=== PATIENT | female | born 1955 | race African-American/Black ===

== ENCOUNTER 2019-02-04 18:36 | Inpatient (IN) ==
[2019-02-04 20:38] LABS: BASO# 0.02 X1000 (0.0-0.2); BASO% 0.2 % (0.0-0.8); EOS# 0.12 X1000 (0.0-0.7); HEMATOCRIT 32.1 % (37.0-47.0); HEMOGLOBIN 10.4 g/dL (12.0-16.0); IMM GRAN# 0.03 X1000 (0.0-0.04); IMM GRAN% 0.3 % (0.0-0.5); LYMPH# 1.63 X1000 (1.2-3.4); LYMPH% 13.8 % (20.5-51.1); MCH 27.8 PG (27-31); MCHC 32.4 g/dL (33-37); MCV 85.8 FL (81-99); MONO% 6.8 % (1.7-9.3); MPV 9.7 FL (7.4-10.4); NEUT# 9.22 X1000 (1.4-6.5); NEUT% 77.9 % (42.2-75.2); PLT 325 X1000 (130-400); RBC 3.74 XMIL (4.2-5.4); RDW 13.7 % (11.5-14.5); WBC 11.82 X1000 (4.8-10.8)
[2019-02-04 20:39] LABS: BE 1.7 mmoll (-3.0-3.0); BLOOD TYPE ARTERIAL; HCO3-(ACT) 26.2 mmoll (20.0-26.0); METHB 0.8 % (0.0-1.5); O2(CT) 14.1 mL/dL (15.0-23.0); O2HB 93.4 % (95.0-99.0); PCO2(98.6) 49 mmHg (35-45); PO2(98.6) 69 mmHg (60-100); SAMPLE BLOOD; SAO2 96.2 % (95.0-100.0); THB 10.7 g/dL (11.5-17.4); pH(98.6) 7.36 (7.35-7.45)
[2019-02-04 20:42] LABS: ALLEN TEST YES; MODALITY CANNULA
--- NOTE | 2019-02-04 21:08 | Diag Imaging Result Doc PS360 ---
EXAM: CHEST-PORTABLE HISTORY: SOB TECHNIQUE: Chest single view COMPARISON: None. FINDINGS: The lungs are well expanded. The heart is not enlarged. Mild central vascular prominence. There are no infiltrates. IMPRESSION: Mild central vascular prominence Electronically signed by Memo Falcon 02/04/2019 9:06 PM
[2019-02-04] MEDS ORDERED: DUONEB (A & A) INH ONE ×2 (21:31→23:05)
[2019-02-04] MEDS ORDERED: ROCEPHIN 1 GM in NS 50 ML IV ONE (21:31)
[2019-02-04 21:38] LABS: URINE SOURCE CLEAN CATCH
[2019-02-04 21:45] LABS: BILIRUBIN URINE NEGATIVE (NEGATIVE); BLOOD URINE 1+ (NEGATIVE); CLARITY CLEAR (CLEAR); COLOR YELLOW; GLUCOSE URINE NEGATIVE (NEGATIVE); KETONE URINE TRACE mg/dL (NEGATIVE); PROTEIN URINE TRACE mg/dL (NEGATIVE); UROBILINOGEN URINE NORMAL
[2019-02-04 21:46] LABS: LEUKOCYTES URINE 1+ (NEGATIVE); NITRITE URINE NEGATIVE (NEGATIVE)
[2019-02-04 21:52] LABS: URINE BACTERIA NEGATIVE /HFP; URINE CAST NONE SEEN /LPF; URINE CRYSTAL NONE SEEN /HPF; URINE EPITHELIAL CELLS <10 /HPF (<10); URINE RBC <10 /HPF (<10); URINE WBC <10 /HPF (<10); URINE YEAST NONE SEEN /HPF
[2019-02-04 22:01] LABS: CREATININE 1.3 mg/dL (0.5-0.9); POTASSIUM 4.3 mmol/L (3.5-5.1)
[2019-02-04 22:02] LABS: CALCIUM 9.2 mg/dL (8.8-10.2)
[2019-02-04] MEDS ORDERED: PEPCID IV ONE (22:05)
[2019-02-04] MEDS ORDERED: SOLU-MEDROL IV ONE (22:05)
[2019-02-04] MEDS ORDERED: NS 500 ML IV ONE (22:05)
[2019-02-04] MEDS ORDERED: SODIUM CHLORIDE 0.9% INJ ONE (22:06)
--- NOTE | 2019-02-04 23:32 | EKG Report ---
Test Performed on : 02/04/2019 7:50:19 PM Test Reason : SOB Blood Pressure : / mmHG Vent. Rate : 104 BPM Atrial Rate : 104 BPM P-R Int : 126 ms QRS Dur : 086 ms QT Int : 332 ms P-R-T Axes : 048 025 053 degrees QTc Int : 436 ms Sinus tachycardia. Otherwise normal ECG When compared with ECG of 24-MAR-2018 20:55, Vent. rate has increased BY 43 BPM Unconfirmed Result
[2019-02-05] MEDS: ZOFRAN IV PRN ×3 (02:11→15:18)
[2019-02-05] MEDS: TORADOL IV PRN ×3 (02:11→22:22)
[2019-02-05] MEDS: DUONEB (A & A) INH SCH ×7 (03:31→23:30)
--- NOTE | 2019-02-05 05:41 | Diag Imaging Result Doc PS360 ---
EXAM: CT ANGIOGRM PULMONARY ARTERIES HISTORY: Dyspnea,elev D-DIM TECHNIQUE: CT chest with intravenous contrast. Pulmonary arterial protocol with MIP images. COMPARISON: 11/09/2017 FINDINGS: Suboptimal opacification of the pulmonary arteries. No central pulmonary emboli. No cardiomegaly. No thoracic aortic aneurysm or dissection. No pleural effusions. There calcified left hilar nodes with left lower lobe granuloma. Small hiatal hernia. There is a small amount of scarring in the right lung base. No consolidation. No bronchiectasis. IMPRESSION: 1.No pulmonary emboli 2.There is evidence of a prior granulomatous infection 3.Small hiatal hernia 4.A preliminary report was given at 11:21 PM on 02/04/2019 This exam was performed using automated exposure control, adjustment of mA or kV according to patient size, and/or use of iterative reconstruction technique. Electronically signed by Memo Falcon 02/05/2019 5:39 AM
[2019-02-05] MEDS ORDERED: BUSPAR PO SCH (10:00)
[2019-02-05] MEDS: ZOLOFT PO SCH (10:21)
[2019-02-05] MEDS: ASPIRIN PO SCH (10:21)
[2019-02-05] MEDS: ICAR-C PO SCH (10:21)
[2019-02-05] MEDS: KLOR-CON PO SCH (10:21)
[2019-02-05] MEDS: CALTRATE 600 + D PO SCH (10:22)
[2019-02-05] MEDS: COREG PO SCH ×2 (10:22→21:31)
[2019-02-05] MEDS: SOLU-MEDROL IV SCH ×2 (10:22→21:31)
[2019-02-05] MEDS: NORVASC PO SCH (10:30)
[2019-02-05] MEDS: NEURONTIN PO SCH ×2 (12:56→17:10)
[2019-02-05] MEDS ORDERED: MYLICON DROPS PO PRN (13:02)
[2019-02-05] MEDS: ADVAIR 100/50 DISKUS INH SCH ×2 (13:05→20:18)
[2019-02-05] MEDS: PERCOCET-10 PO PRN (15:18)
--- NOTE | 2019-02-05 17:40 | HISTORY AND PHYSICAL ---
CHIEF COMPLAINT: Shortness of breath that had began just prior to arrival. HISTORY OF PRESENTING ILLNESS: This is a 63-year-old female who presented to [facility] ER with complaints of shortness of breath that began yesterday prior to arrival. She was saturating 97% on 2 L via nasal cannula, states that she quit smoking cigarettes but continues to vape. Her white blood cell count was 11.82. D-dimer was 0.66. We did do a pulmonary arteriogram that showed no pulmonary emboli. Her creatinine was 1.3 with a BUN of 27 so she is being admitted for further evaluation and treatment. PAST MEDICAL HISTORY: Of CHF with an ejection fraction of 60% in 2018, coronary artery disease, hypertension, hyperlipidemia, obstructive sleep apnea, COPD, GERD, chronic pain on chronic narcotics, neuropathy and morbid obesity. PAST SURGICAL HISTORY: Heart stent placement x2, an appendectomy, bilateral tubal ligation. FAMILY HISTORY: Reviewed and noncontributory. SOCIAL HISTORY: She currently lives with family, quit smoking cigarettes 4 years ago but does use vaping, denies any alcohol or illicit drug use. ALLERGIES: She has no known drug allergies. HOME MEDICATIONS: Takes amlodipine 10 mg p.o. daily, aspirin 81 mg p.o. daily, atorvastatin 40 mg p.o. daily, BuSpar 12.5 mg p.o. daily, calcium with D3 1 p.o. daily, Coreg 12.5 mg p.o. b.i.d., Advair 100/50 Diskus 1 puff inhalation b.i.d., Lasix 40 mg p.o. daily will be held, gabapentin 600 mg p.o. t.i.d., iron with vitamin C 325 mg p.o. daily, oxycodone 10 mg p.o. q.8 hours p.r.n., potassium 10 mEq p.o. daily, Requip 2 mg p.o. at bedtime, Zoloft 50 mg p.o. daily. LABORATORY DATA: Showed a white blood cell count of 11.82, hemoglobin 10.4, hematocrit 32.1, platelets 325,000, D-dimer 0.66. ABG with a pH of 7.36, pCO2 of 49, PO2 69, bicarbonate 26.2 and this was on 2 L via nasal cannula. Sodium 136, potassium 4.3, chloride 97, CO2 24, BUN of 27, creatinine 1.3, glucose 129. Troponin was less than 0.010 with a proBNP of 81. Plasma lactate of 0.8. Urinalysis was negative. Chest x-ray showed mild central vascular prominence. Pulmonary arteriogram showed no pulmonary emboli, evidence of a prior granulomatous infection, a small hiatal hernia. REVIEW OF SYSTEMS: She was positive for shortness of breath, a nonproductive cough. Denied any fever, chills, blurred vision, dizziness, abdominal pain, constipation, diarrhea, nausea, vomiting, burning or hurting with urination. PHYSICAL EXAMINATION: On arrival she had a temperature of 98.5 degrees, pulse 105, respirations 20, blood pressure 137/67, saturating 97% on 2 L on arrival, she is now saturating 95% on 3 L. GENERAL: This is a 63-year-old female who is lying in the bed and answers questions appropriately. HEENT: Normocephalic, atraumatic. Normal ENT inspection. Oropharynx and nares are clear. Pupils are equal, round, reactive to light and accommodation. Extraocular movements are intact. NECK: Normal inspection, normal range of motion. LUNGS: With some scattered wheezing this morning on auscultation bilaterally. Equal lung expansion, chest wall movement noted. O2 via nasal cannula currently in use. HEART: Regular rate and rhythm. No murmurs, rubs, or gallops. ABDOMEN: Soft, nontender, nondistended. Bowel sounds are present x4 quadrants. MUSCULOSKELETAL: 5/5 strength x4 extremities. NEUROLOGICAL: The cranial nerves 2-12 appear grossly intact. ASSESSMENT: 1. An acute chronic obstructive pulmonary disease exacerbation. 2. Acute kidney injury. 3. Elevated D-dimer ruled out for pulmonary embolism . 4. Tobacco abuse. PLAN: She is being admitted to the medical unit. Placed on healthy heart diet. Blood cultures x2 are pending. She is on DuoNeb q.4 hours. She received Solu-Medrol 125 mg IV x1 in the emergency room, I am going to place her on 40 IV b.i.d., recheck CBC, BMP in the a.m. I am hesitant to start any fluids due to her congestive heart failure. I have held her diuretic at this time. We will recheck in the morning and see how she improves. Dictated by MICHAELA Osei for Prosper Cisneros MD cc: MICHAELA Osei MD
[2019-02-05] MEDS: ROCEPHIN 1 GM in NS 50 ML IV SCH (21:31)
[2019-02-05] MEDS: REQUIP PO SCH (21:31)
[2019-02-05] MEDS: LIPITOR PO SCH (21:31)
[2019-02-05] MEDS: CHLORASEPTIC SPRAY MT PRN (22:10)
[2019-02-06] MEDS: DUONEB (A & A) INH SCH ×5 (03:15→20:20)
[2019-02-06 07:46] LABS: HEMATOCRIT 32.2 % (37.0-47.0); HEMOGLOBIN 10.1 g/dL (12.0-16.0); IMM GRAN# 0.11 X1000 (0.0-0.04); IMM GRAN% 0.6 % (0.0-0.5); LYMPH# 0.85 X1000 (1.2-3.4); LYMPH% 4.5 % (20.5-51.1); MCH 27.4 PG (27-31); MCHC 31.4 g/dL (33-37); MCV 87.3 FL (81-99); MONO# 0.75 X1000 (0.11-0.59); MPV 9.6 FL (7.4-10.4); NEUT# 17.18 X1000 (1.4-6.5); NEUT% 90.9 % (42.2-75.2); PLT 356 X1000 (130-400); RBC 3.69 XMIL (4.2-5.4); RDW 14.4 % (11.5-14.5); WBC 18.89 X1000 (4.8-10.8)
[2019-02-06] MEDS: ADVAIR 100/50 DISKUS INH SCH ×2 (08:17→20:20)
[2019-02-06 08:31] LABS: CALCIUM 9.4 mg/dL (8.8-10.2)
[2019-02-06 08:34] LABS: LYMPHS 4 % (21-51); SEGS 96 % (42-75)
[2019-02-06 08:35] LABS: ANISOCYTOSIS OCCASIONAL; POIKILOCYTOSIS OCCASIONAL; POLYCHROM OCCASIONAL
[2019-02-06 08:36] LABS: OVALOCYTES OCCASIONAL
[2019-02-06] MEDS: ICAR-C PO SCH (08:49)
[2019-02-06] MEDS: SOLU-MEDROL IV SCH ×2 (08:49→10:06)
[2019-02-06] MEDS: CALTRATE 600 + D PO SCH (08:50)
[2019-02-06] MEDS: ZOLOFT PO SCH (08:50)
[2019-02-06] MEDS: NEURONTIN PO SCH ×3 (08:50→17:18)
[2019-02-06] MEDS: COREG PO SCH ×2 (08:50→22:05)
[2019-02-06] MEDS: NORVASC PO SCH (08:50)
[2019-02-06] MEDS: KLOR-CON PO SCH (08:50)
[2019-02-06] MEDS: BUSPAR PO SCH (08:50)
[2019-02-06] MEDS: ASPIRIN PO SCH (08:50)
[2019-02-06] MEDS: CHLORASEPTIC SPRAY MT PRN (08:55)
[2019-02-06] MEDS: MIRALAX PO SCH (12:17)
[2019-02-06] MEDS: LACTULOSE PO SCH ×3 (12:21→22:10)
--- NOTE | 2019-02-06 13:56 | PROGRESS NOTE ---
DATE: 02/06/2019 SUBJECTIVE: She was seen today after admission. She seems to be doing okay. Breathing is still a bit rough. She is also complaining of constipation. OBJECTIVE DATA: Her blood pressure is 131/55, heart rate of 94, respiratory rate of 22, temperature 98.1 degrees, 93% on 2 L. Cardiovascular: Regular rate and rhythm. Pulmonary: Bilateral breath sounds clear to auscultation. GI: Soft, nontender, nondistended. Bowel sounds were positive. Extremities: No clubbing or cyanosis. Lymphatic Examination: No peripheral edema. Neurological Examination: Nonfocal. Laboratory Data: White count is up to 18, hemoglobin and hematocrit 10 and 32, platelets 356,000. Basic was okay. Creatinine is down to 1. Chest x-ray just shows some vascular prominence. A CTA is really negative. PROBLEM LIST: 1. Acute chronic obstructive pulmonary disease exacerbation. She is still somewhat rhonchorous. I am going to bump up her steroids a little bit because she seems like she is still having wheezing. Continue breathing treatments and follow. 2. Acute kidney injury. Her renal function has improved. 3. Constipation. We will attempt to treat that accordingly. 4. Elevated D-dimer. She had a CTA that was negative. Presumably, she got the venous Dopplers as well. I guess we will get those at some point today. 5. Disposition. Pending her clinical status. It may be another day or two here. This will also serve as an attestation for yesterday's history and physical. cc: Prosper Cisneros MD
[2019-02-06] MEDS: PERCOCET-10 PO PRN ×2 (15:32→22:27)
[2019-02-06] MEDS ORDERED: SOLU-MEDROL IV SCH (22:00)
[2019-02-06] MEDS: LIPITOR PO SCH (22:05)
[2019-02-06] MEDS: REQUIP PO SCH (22:06)
[2019-02-06] MEDS: ROCEPHIN 1 GM in NS 50 ML IV SCH (22:06)
[2019-02-07] MEDS: DUONEB (A & A) INH SCH ×7 (01:15→22:35)
[2019-02-07] MEDS: LOVENOX SUBQ SCH (05:31)
[2019-02-07] MEDS: PERCOCET-10 PO PRN ×2 (05:31→18:06)
[2019-02-07 07:00] LABS: AGAP 9; BUN 28 mg/dL (8-22); CALCIUM 9.4 mg/dL (8.8-10.2); CHLORIDE 100 mmol/L (98-107); COSMO 282; CREATININE 0.8 mg/dL (0.5-0.9); ESTIMATED GFR > 60; GLUCOSE 186 mg/dL (70-104); POTASSIUM 5.3 mmol/L (3.5-5.1); SODIUM 136 mmol/L (136-145); TCO2 27 mmol/L (25-35)
[2019-02-07 07:05] LABS: HEMATOCRIT 32.5 % (37.0-47.0); IMM GRAN# 0.19 X1000 (0.0-0.04); IMM GRAN% 1.1 % (0.0-0.5); LYMPH# 0.82 X1000 (1.2-3.4); LYMPH% 4.7 % (20.5-51.1); MCH 27.4 PG (27-31); MCHC 30.8 g/dL (33-37); MONO# 0.15 X1000 (0.11-0.59); MONO% 0.9 % (1.7-9.3); MPV 9.6 FL (7.4-10.4); NEUT# 16.43 X1000 (1.4-6.5); NEUT% 93.3 % (42.2-75.2); PLT 356 X1000 (130-400); RBC 3.65 XMIL (4.2-5.4); RDW 14.8 % (11.5-14.5); WBC 17.59 X1000 (4.8-10.8)
[2019-02-07] MEDS: ADVAIR 100/50 DISKUS INH SCH ×2 (07:53→19:36)
[2019-02-07 08:21] LABS: BANDS 3 % (0-1); LYMPHS 9 % (21-51); SEGS 88 % (42-75)
[2019-02-07] MEDS: LACTULOSE PO SCH ×2 (10:49→21:31)
[2019-02-07] MEDS: MIRALAX PO SCH (10:49)
[2019-02-07] MEDS: SOLU-MEDROL IV SCH ×2 (10:49→21:31)
[2019-02-07] MEDS: NEURONTIN PO SCH ×3 (10:49→18:07)
[2019-02-07] MEDS: COREG PO SCH ×2 (10:49→21:32)
[2019-02-07] MEDS: ZOLOFT PO SCH (10:50)
[2019-02-07] MEDS: ASPIRIN PO SCH (10:50)
[2019-02-07] MEDS: ICAR-C PO SCH (10:50)
[2019-02-07] MEDS: NORVASC PO SCH (10:50)
[2019-02-07] MEDS: CALTRATE 600 + D PO SCH (10:51)
[2019-02-07] MEDS: BUSPAR PO SCH (11:03)
--- NOTE | 2019-02-07 11:08 | PROGRESS NOTE ---
DATE: 02/07/2019 SUBJECTIVE: Patient notes that she is still tired and fatigued. Still having some increased work of breathing. Does not feel strong enough to go home. PHYSICAL EXAMINATION: Vital Signs: Reviewed and stable. She is afebrile. Blood pressure is stable. Heart rate 80s, respiratory rate 20. General: Patient is in mild current respiratory distress which is improved. HEENT: Normocephalic. Neck: Supple. Cardiovascular: Regular rate. Chest: Decreased breath sounds bilaterally but equal. Abdomen: Soft, nondistended, nontender. Extremities: Moves all extremities. No edema. Neurologic: No focal changes. She is awake, alert, oriented x3. LABORATORY DATA: WBCs 17, potassium 5.3. ASSESSMENT: 1. Hyperkalemia. The patient currently is on potassium supplements. We will certainly stop this and recheck in the morning. 2. Leukocytosis. She is on Solu-Medrol which I expect is the cause of her leukocytosis. 3. Acute chronic obstructive pulmonary disease exacerbation. Continues to improve. Her steroids yesterday. We will decrease those back to 40 IV q.12h. We will continue Rocephin. Plan: Hopefully, she can discharge home over the next 1 or 2 days if her symptoms continue to improve. Discussed with patient the importance of getting out of bed today. cc: Trace Dumont MD MTDD
[2019-02-07] MEDS: REQUIP PO SCH (21:31)
[2019-02-07] MEDS: ROCEPHIN 1 GM in NS 50 ML IV SCH (21:31)
[2019-02-07] MEDS: LIPITOR PO SCH (21:32)
[2019-02-08] MEDS: DUONEB (A & A) INH SCH ×6 (03:52→22:49)
[2019-02-08] MEDS: LOVENOX SUBQ SCH (05:50)
[2019-02-08] MEDS: ADVAIR 100/50 DISKUS INH SCH ×2 (07:39→18:58)
[2019-02-08 07:52] LABS: HEMATOCRIT 34.7 % (37.0-47.0); HEMOGLOBIN 10.8 g/dL (12.0-16.0); MCH 27.6 PG (27-31); MCHC 31.1 g/dL (33-37); MCV 88.5 FL (81-99); MPV 9.6 FL (7.4-10.4); RBC 3.92 XMIL (4.2-5.4); RDW 14.9 % (11.5-14.5); WBC 19.2 X1000 (4.8-10.8)
[2019-02-08 08:08] LABS: AGAP 8; ALBUMIN 3.8 g/dL (3.5-5.0); ALKALINE PHOSPHATASE 93 U/L (32-104); BUN 27 mg/dL (8-22); CALCIUM 9.5 mg/dL (8.8-10.2); CHLORIDE 101 mmol/L (98-107); COSMO 285; CREATININE 0.7 mg/dL (0.5-0.9); ESTIMATED GFR > 60; GLUCOSE 147 mg/dL (70-104); GOT 12 U/L (10-30); GPT 16 U/L (10-36); POTASSIUM 5.4 mmol/L (3.5-5.1); SODIUM 139 mmol/L (136-145); TCO2 30 mmol/L (25-35); TOTAL PROTEIN 7.1 g/dL (6.3-8.3)
--- NOTE | 2019-02-08 08:20 | Extremity Venous Study ---
EXAM: Venous U/S Bilateral Legs HISTORY: swelling TECHNIQUE: Kong scale, color Doppler, and duplex evaluation was performed. COMPARISON: None. FINDINGS: The deep veins of the bilateral lower extremities demonstrate appropriate compressibility and augmentation. No intraluminal thrombus is visualized. There is no evidence for DVT. The superficial veins appear patent. Study is technically limited by body habitus. IMPRESSION: No evidence for deep venous thrombosis bilateral lower extremities. Electronically signed by Krystal Pathak 02/08/2019 8:18 AM
[2019-02-08] MEDS: LASIX IV SCH ×2 (09:12→21:01)
[2019-02-08] MEDS: LACTULOSE PO SCH ×2 (09:13→21:01)
[2019-02-08] MEDS: NORVASC PO SCH (09:13)
[2019-02-08] MEDS: ICAR-C PO SCH (09:13)
[2019-02-08] MEDS: SOLU-MEDROL IV SCH ×2 (09:13→21:01)
[2019-02-08] MEDS: CALTRATE 600 + D PO SCH (09:13)
[2019-02-08] MEDS: MIRALAX PO SCH (09:13)
[2019-02-08] MEDS: COREG PO SCH ×2 (09:13→21:01)
[2019-02-08] MEDS: ZOLOFT PO SCH (09:13)
[2019-02-08] MEDS: ASPIRIN PO SCH (09:13)
[2019-02-08] MEDS: NEURONTIN PO SCH ×3 (09:14→17:20)
[2019-02-08] MEDS: BUSPAR PO SCH (09:14)
--- NOTE | 2019-02-08 09:45 | Diag Imaging Result Doc PS360 ---
EXAM: CHEST-2 VIEWS HISTORY: hypoxia TECHNIQUE: PA and Lateral chest x-ray COMPARISON: 02/04/2019 FINDINGS: There is mild cardiomegaly. The aorta is tortuous. There is platelike atelectasis left lung. Pulmonary vasculature is not congested. Interstitial markings are mildly prominent similar to prior. No effusions. IMPRESSION: New platelike atelectasis left lung. Persistent mild interstitial prominence. Electronically signed by Krystal Pathak 02/08/2019 9:43 AM
[2019-02-08] MEDS: PERCOCET-10 PO PRN ×2 (10:10→21:13)
--- NOTE | 2019-02-08 19:44 | PROGRESS NOTE ---
DATE: 02/07/2019 SUBJECTIVE: Patient has no new complaints. States she is still short of breath. She has not really been out of bed. Still having swelling in her legs. PHYSICAL EXAMINATION: Vital Signs: Temperature 97.8, pulse 94, respiratory rate 18, BP 140/92. General: Patient is awake. She is in no current respiratory distress, although she does have some rhonchorous air sounds. HEENT: Normocephalic. Neck: Supple. Cardiovascular: Regular rate. Chest: Clear. Abdomen: Soft. Extremities: Moves all extremities. She does have 2+ edema in her bilateral lower extremities. Neurologic: No focal changes. ASSESSMENT: 1. Chronic obstructive pulmonary disease with mild exacerbation. Continues to improve. 2. Lower extremity edema. She did have an elevated D-dimer with a negative CTA and negative Dopplers. 3. Hyperkalemia. We have stopped her potassium. 4. Leukocytosis secondary to her Solu-Medrol. PLAN: We will continue patient in the hospital. We will continue to hold her potassium, decrease her breathing treatments per the family's request. The daughter was somewhat alarmed that the patient had gained weight, although this is more likely inadvertent user error as patient's weight had changed from 317 to 328, back to 307 in 3 subsequent days. This is highly unlikely. We will continue to follow. cc: Trace Dumont MD
[2019-02-08] MEDS: ROCEPHIN 1 GM in NS 50 ML IV SCH (21:00)
[2019-02-08] MEDS: LIPITOR PO SCH (21:01)
[2019-02-08] MEDS: REQUIP PO SCH (21:01)
[2019-02-09] MEDS: DUONEB (A & A) INH SCH ×6 (05:01→23:08)
[2019-02-09] MEDS: LOVENOX SUBQ SCH (05:08)
[2019-02-09 07:13] LABS: MCH 27.6 PG (27-31); MCHC 31.4 g/dL (33-37); MCV 87.9 FL (81-99); MPV 9.7 FL (7.4-10.4); RBC 3.98 XMIL (4.2-5.4); RDW 14.8 % (11.5-14.5); WBC 19.68 X1000 (4.8-10.8)
[2019-02-09 07:43] LABS: AGAP 11; ALBUMIN 3.4 g/dL (3.5-5.0); ALKALINE PHOSPHATASE 85 U/L (32-104); BUN 26 mg/dL (8-22); CALCIUM 8.9 mg/dL (8.8-10.2); CHLORIDE 99 mmol/L (98-107); COSMO 286; CREATININE 0.7 mg/dL (0.5-0.9); ESTIMATED GFR > 60; GLUCOSE 158 mg/dL (70-104); GOT 9 U/L (10-30); GPT 14 U/L (10-36); MAGNESIUM 1.8 mg/dL (1.5-2.7); POTASSIUM 4.8 mmol/L (3.5-5.1); SODIUM 139 mmol/L (136-145); TCO2 29 mmol/L (25-35); TOTAL PROTEIN 6.7 g/dL (6.3-8.3)
[2019-02-09] MEDS: ADVAIR 100/50 DISKUS INH SCH ×2 (08:12→19:59)
[2019-02-09] MEDS: MIRALAX PO SCH ×2 (08:59→09:09)
[2019-02-09] MEDS: COREG PO SCH ×2 (09:00→21:00)
[2019-02-09] MEDS ORDERED: SOLU-MEDROL IV SCH (09:00)
[2019-02-09] MEDS: ZOLOFT PO SCH (09:00)
[2019-02-09] MEDS: LASIX IV SCH (09:00)
[2019-02-09] MEDS: LACTULOSE PO SCH ×2 (09:00→21:01)
[2019-02-09] MEDS: PERCOCET-10 PO PRN ×2 (09:00→17:04)
[2019-02-09] MEDS: ASPIRIN PO SCH (09:01)
[2019-02-09] MEDS: CALTRATE 600 + D PO SCH (09:01)
[2019-02-09] MEDS: ICAR-C PO SCH (09:01)
[2019-02-09] MEDS: NORVASC PO SCH (09:01)
[2019-02-09] MEDS: BUSPAR PO SCH (09:01)
[2019-02-09] MEDS: NEURONTIN PO SCH ×3 (09:02→17:04)
--- NOTE | 2019-02-09 19:27 | PROGRESS NOTE ---
DATE: 02/09/2019 SUBJECTIVE: The patient notes that she is feeling better. She has chronic edema and fatigue. She is unable to acknowledge whether this has improved or worsened. OBJECTIVE: Vital Signs: Temperature 97.1, pulse 88, respiratory rate 18, BP 139/69. General: The patient is in no distress. She actually appears to be breathing easier today than she did yesterday. HEENT: Normocephalic. Neck: Supple. Cardiovascular: Regular rate. No murmurs. Chest: Nonlabored. No wheezing. Good air movement. Abdomen: Soft, nondistended, obese. Extremities: Moves all extremities. Two plus edema bilateral lower extremities. Neurologic: She has no focal neurologic changes. She is awake, alert, and oriented. ASSESSMENT: 1. Edema bilateral lower extremities. I expect she has some right-sided heart failure given her chronic obstructive pulmonary disease. 2. Chronic obstructive pulmonary disease exacerbation. 3. Leukocytosis, stable. 4. Hyperkalemia. Potassium is still elevated. Although we did hold her potassium we will recheck this in the morning. 5. Constipation. PLAN: Overall the patient has improved. We will continue to follow and keep her in the hospital today. Further orders as needed. We will recheck laboratories in the morning. cc: Trace Dumont MD
[2019-02-09] MEDS: REQUIP PO SCH (20:48)
[2019-02-09] MEDS: ROCEPHIN 1 GM in NS 50 ML IV SCH (20:48)
[2019-02-09] MEDS: LIPITOR PO SCH (20:48)
[2019-02-10] MEDS: DUONEB (A & A) INH SCH (03:02)
[2019-02-10] MEDS: LOVENOX SUBQ SCH (05:00)
[2019-02-10] MEDS: PERCOCET-10 PO PRN ×2 (05:14→16:10)
[2019-02-10] MEDS: ATROVENT NEB INH SCH ×5 (07:33→22:55)
[2019-02-10] MEDS: XOPENEX NEB INH SCH ×5 (07:34→22:55)
[2019-02-10] MEDS: ADVAIR 100/50 DISKUS INH SCH ×2 (07:34→19:20)
[2019-02-10] MEDS: NEXIUM PO SCH (10:03)
[2019-02-10] MEDS: LACTULOSE PO SCH ×2 (10:03→20:54)
[2019-02-10] MEDS: BUSPAR PO SCH (10:04)
[2019-02-10] MEDS: NEURONTIN PO SCH ×3 (10:04→16:09)
[2019-02-10] MEDS: ICAR-C PO SCH (10:05)
[2019-02-10] MEDS: PREDNISONE PO SCH ×2 (10:05→20:55)
[2019-02-10] MEDS: LASIX PO SCH ×2 (10:06→20:55)
[2019-02-10] MEDS: ANUSOL-HC SUPP PR SCH ×3 (10:06→20:55)
[2019-02-10] MEDS: ASPIRIN PO SCH (10:06)
[2019-02-10] MEDS: CALTRATE 600 + D PO SCH (10:06)
[2019-02-10] MEDS: MIRALAX PO SCH (10:07)
[2019-02-10] MEDS: NORVASC PO SCH (10:07)
[2019-02-10] MEDS: COREG PO SCH ×2 (10:07→20:55)
[2019-02-10] MEDS: ZOLOFT PO SCH (10:07)
[2019-02-10] MEDS: MYCELEX TROCHE PO SCH ×5 (10:19→20:55)
--- NOTE | 2019-02-10 13:58 | PROGRESS NOTE ---
DATE: 02/09/2019 SUBJECTIVE: Patient notes that she is feeling a little bit better, but still has not really been out of bed. Very tired and fatigued with any type of activity. Denies any chest pain or palpitations. Denies any change in her shortness of breath. No production to her cough. OBJECTIVE: Temperature 98.5, pulse 83, respiratory 18, and BP 132/70.General: Patient is awake. She is in no current respiratory distress. She is very pleasant to talk with. HEENT: Normocephalic. Neck: Supple. Cardiovascular: Regular rate. No murmurs. Lungs: Chest decreased but equal breath sounds. No wheezing. No crackles. Abdomen: Soft and nondistended. Extremities: Moves all extremities. ASSESSMENT: 1. Leukocytosis. 2. Hyperkalemia. 3. COPD with exacerbation. 4. Pedal edema. 5. Elevated D-dimer. PLAN: We will decrease her Solu-Medrol again today. We will change her over to prednisone. We will also change her Lasix to p.o. twice daily. She has had a good total urine output so far at 2235. If this continues, hopefully she can discharge home over the next 1 or 2 days. cc: Trace Dumont MD
[2019-02-10] MEDS: REQUIP PO SCH (20:54)
[2019-02-10] MEDS: ROCEPHIN 1 GM in NS 50 ML IV SCH (20:55)
[2019-02-10] MEDS: LIPITOR PO SCH (20:55)
[2019-02-11] MEDS: PERCOCET-10 PO PRN ×2 (00:23→10:03)
[2019-02-11] MEDS: LOVENOX SUBQ SCH (06:12)
[2019-02-11] MEDS: NEXIUM PO SCH (06:12)
--- NOTE | 2019-02-11 08:18 | Diag Imaging Result Doc PS360 ---
EXAM: CHEST-2 VIEWS HISTORY: hypoxia TECHNIQUE: Chest two views COMPARISON: 02/08/2019 FINDINGS: The lungs are well expanded except for atelectasis in the mid left lung. The heart is borderline mildly prominent. The vessels are not distended. There are no infiltrates. No pleural effusions. IMPRESSION: Stable chest Electronically signed by Memo Falcon 02/11/2019 8:16 AM
[2019-02-11] MEDS: XOPENEX NEB INH SCH ×5 (08:52→23:45)
[2019-02-11] MEDS: ATROVENT NEB INH SCH ×5 (08:52→23:45)
[2019-02-11] MEDS: ADVAIR 100/50 DISKUS INH SCH ×2 (08:52→19:45)
[2019-02-11 09:13] LABS: AGAP 11; ALBUMIN 3.7 g/dL (3.5-5.0); ALKALINE PHOSPHATASE 89 U/L (32-104); BUN 21 mg/dL (8-22); CALCIUM 8.8 mg/dL (8.8-10.2); CHLORIDE 95 mmol/L (98-107); COSMO 284; CREATININE 0.6 mg/dL (0.5-0.9); ESTIMATED GFR > 60; GLUCOSE 187 mg/dL (70-104); GOT 11 U/L (10-30); GPT 15 U/L (10-36); MAGNESIUM 1.7 mg/dL (1.5-2.7); POTASSIUM 4.7 mmol/L (3.5-5.1); SODIUM 138 mmol/L (136-145); TCO2 32 mmol/L (25-35)
[2019-02-11 09:14] LABS: HEMATOCRIT 39.2 % (37.0-47.0); HEMOGLOBIN 12.2 g/dL (12.0-16.0); MCH 27.3 PG (27-31); MCHC 31.1 g/dL (33-37); MCV 87.7 FL (81-99); MPV 9.2 FL (7.4-10.4); RBC 4.47 XMIL (4.2-5.4); WBC 20.76 X1000 (4.8-10.8)
[2019-02-11] MEDS: ANUSOL-HC SUPP PR SCH ×3 (09:57→20:27)
[2019-02-11] MEDS: MIRALAX PO SCH (09:59)
[2019-02-11] MEDS: PREDNISONE PO SCH ×2 (10:00→20:27)
[2019-02-11] MEDS: BUSPAR PO SCH (10:00)
[2019-02-11] MEDS: NORVASC PO SCH (10:01)
[2019-02-11] MEDS: NEURONTIN PO SCH ×3 (10:01→18:12)
[2019-02-11] MEDS: ASPIRIN PO SCH (10:01)
[2019-02-11] MEDS: ICAR-C PO SCH (10:02)
[2019-02-11] MEDS: LASIX PO SCH ×2 (10:02→20:27)
[2019-02-11] MEDS: ZOLOFT PO SCH (10:02)
[2019-02-11] MEDS: CALTRATE 600 + D PO SCH (10:02)
[2019-02-11] MEDS: COREG PO SCH ×2 (10:03→20:27)
[2019-02-11] MEDS: LACTULOSE PO SCH ×2 (10:03→20:27)
[2019-02-11] MEDS: MYCELEX TROCHE PO SCH ×5 (10:04→20:27)
--- NOTE | 2019-02-11 17:12 | PROGRESS NOTE ---
DATE: 02/11/2019 SUBJECTIVE: Patient notes that she is feeling a little bit better today than yesterday. Denies any chest pain, palpitations. Denies any GI or issues currently. OBJECTIVE: Vital Signs: Temperature 98.3, pulse 78, respiratory rate 18, BP 142/77. General: Patient is awake, alert. She is in no current distress. Her color appears much better today than it did even yesterday. She appears to be breathing easier. HEENT: Normocephalic. Neck: Supple. Cardiovascular: Regular rate. Chest: Clear. Abdomen: Soft. Extremities: Moves all extremities, still has 2+ edema. ASSESSMENT: 1. Bilateral lower extremity edema. She has actually lost almost 3 L of fluids since being in the hospital. 2. Acute kidney injury, resolved. 3. Hyperkalemia, improving. We will recheck in the a.m. 4. Chronic obstructive pulmonary disease with exacerbation. PLAN: We will continue patient in the hospital today as she is getting stronger but certainly not strong enough to be discharged home today. Hopefully, this will improve and she can be discharged tomorrow. Further orders as needed. cc: Trace Dumont MD
[2019-02-11] MEDS: REQUIP PO SCH (20:27)
[2019-02-11] MEDS: ROCEPHIN 1 GM in NS 50 ML IV SCH (20:27)
[2019-02-11] MEDS: LIPITOR PO SCH (20:27)
[2019-02-12] MEDS: PERCOCET-10 PO PRN ×2 (01:16→09:29)
[2019-02-12 04:33] VITALS: BP 157/71
[2019-02-12] MEDS: LOVENOX SUBQ SCH (06:06)
[2019-02-12] MEDS: NEXIUM PO SCH (06:06)
[2019-02-12] MEDS: XOPENEX NEB INH SCH ×2 (08:05→11:40)
[2019-02-12] MEDS: ADVAIR 100/50 DISKUS INH SCH (08:05)
[2019-02-12] MEDS: ATROVENT NEB INH SCH ×2 (08:05→11:41)
[2019-02-12] MEDS: ASPIRIN PO SCH (08:19)
[2019-02-12] MEDS: NORVASC PO SCH (08:19)
[2019-02-12] MEDS: CALTRATE 600 + D PO SCH (08:19)
[2019-02-12] MEDS: ZOLOFT PO SCH (08:20)
[2019-02-12] MEDS: NEURONTIN PO SCH ×2 (08:20→12:10)
[2019-02-12] MEDS: PREDNISONE PO SCH (08:20)
[2019-02-12] MEDS: COREG PO SCH (08:20)
[2019-02-12] MEDS: LASIX PO SCH (08:20)
[2019-02-12] MEDS: ICAR-C PO SCH (08:20)
[2019-02-12] MEDS: BUSPAR PO SCH (08:20)
[2019-02-12] MEDS: ANUSOL-HC SUPP PR SCH (08:20)
[2019-02-12] MEDS: LACTULOSE PO SCH (08:21)
[2019-02-12] MEDS: MIRALAX PO SCH (08:21)
[2019-02-12] MEDS: MYCELEX TROCHE PO SCH ×2 (09:20→12:10)
--- NOTE | 2019-02-12 22:22 | DISCHARGE SUMMARY ---
ADMISSION DATE: 02/05/2019 DISCHARGE DATE: 02/12/2019 ADDENDUM: Patient seen and examined by myself. Full note dictated and discussed with nurse practitioner. On discharge, patient is awake, alert. She is in no distress. She has got much less edema in her lower extremities than she had on admission. Still has trace to minimally 1+ which is an improvement. Her breathing is improved. Denies any chest pains or palpitations. We will discharge her home with prednisone and Lasix twice a day. She will not need antibiotics at this point. cc: Trace Dumont MD
--- NOTE | 2019-02-15 18:29 | DISCHARGE SUMMARY ---
ADMISSION DATE: 02/05/2019 DISCHARGE DATE: 02/12/2019 DISCHARGE DIAGNOSES: 1. Bilateral lower extremity edema. 2. Adult failure to thrive. 3. Congestive heart failure, diastolic. 4. Known coronary artery disease. 5. Hypertension. 6. Hyperlipidemia. 7. Obstructive sleep apnea. 8. Chronic obstructive pulmonary disease. 9. Chronic pain. 10. Chronic neuropathy. 11. Morbid obesity. 12. Acute kidney injury, resolved. 13. Chronic tobacco abuse. Again discussed with patient the perils of smoking as well as ways to stop. 14. Elevated D-dimer. Negative for deep venous thrombosis and pulmonary emboli. CONSULTATIONS: None. PROCEDURES: None. BRIEF HOSPITAL COURSE: The patient is a 63-year-old female who presented to the hospital, treated in the usual fashion, placed on breathing treatments, oxygen, Lasix. We had Physical Therapy assist her with ambulation which delayed her hospital stay due to generalized weakness. She continued to lose weight and her lower extremity edema continued to improve. On discharge, patient is awake, alert. She is in no distress. Overall is feeling better and is starting to ambulate better. DISPOSITION: Patient will be discharged home. She will take Lasix at home. Will follow up with her primary care. Will continue to ambulate. Further orders as needed. Greater than 30 minutes was spent in total care. cc: Trace Dumont MD
== END 2019-02-12 14:30 | disposition home health service (06) | DRG 191 ==
LOC: P.ED 18:36 → P.MEDSURG 02-05 01:09 → SUATTDRO 02-05 01:09 → P.MEDSURG 02-05 01:56
PROVIDERS: ATTEND Family Medicine
CPT/HCPCS: 71010; 71020; 71045; 71046; 71275; 80048; 80053; 81001; 82805; 83605; 83735; 83880; 84484; 85025; 85027; 85379; 87040; 92610; 93005; 93970; 94640; 94761; 96361; 96365; 96375; 97163; 97530; 99285; A9270; J0696; J1650; J1885; J1940; J2405; J2920; J2930; J7040; J7506; J7512; Q9967; S0028

== ENCOUNTER 2019-05-28 19:44 | Inpatient (IN) ==
[2019-05-28] MEDS ORDERED: NS 500 ML IV ONE (20:19)
--- NOTE | 2019-05-28 20:29 | PROVIDER DOCUMENTATION ---
HPI-General Adult - General Chief Complaint: Edema Stated Complaint: SWELLING IN LEGS Time Seen by Provider: 05/28/19 20:02 Source: patient, family Allergies/Adverse Reactions: Patient Allergies Allergy/AdvReac Type Severity Reaction Status Date / Time No Known Allergies Allergy Verified 05/28/19 19:54 Home Medications: Home Medication List Medication Instructions Recorded Confirmed Last Taken Type Aspirin 81 mg PO DAILY 12/19/12 05/28/19 05/23/17 06:00 History ATORVAstatin [Lipitor] 40 mg PO DAILY 12/07/17 05/28/19 Unknown History Sertraline [Zoloft] 50 mg PO DAILY 03/24/18 05/28/19 Unknown History Amlodipine Besylate 10 mg PO DAILY 02/05/19 05/28/19 Unknown History Buspirone [Buspar] 7.5 mg PO DAILY 02/05/19 05/28/19 Unknown History Calcium Carb, Citrate/Vit D3 1 tab PO DAILY 02/05/19 05/28/19 Unknown History [Calcium + D3 ER Tablet] Carvedilol [Coreg] 12.5 mg PO BID 02/05/19 05/28/19 Unknown History Fluticasone/Salmet 100/50 INH 1 puff INH BID 02/05/19 05/28/19 Unknown History [Advair 100/50 Diskus] Furosemide [Lasix] 40 mg PO DAILY 02/05/19 05/28/19 Unknown History Gabapentin 600 mg PO TID 02/05/19 05/28/19 Unknown History Potassium Chloride 10 meq PO DAILY 02/05/19 05/28/19 Unknown History Ropinirole HCl [Requip] 2 mg PO QHS 02/05/19 05/28/19 Unknown History Ertapenem 1 gm/Ns [Invanz 1 gm/Ns] 1 gm IV DAILY #10 ivpb 04/04/19 05/28/19 Unknown Rx Oxycodone HCl/Acetaminophen 1 ea PO DIRECTED 05/28/19 05/28/19 Unknown History [Oxycodone-Acetaminophen 10-325] - History of Present Illness -Gen Adult Nature of Presenting Problems: pt c/o erythema, swelling and pain to rt lower extremity onset yesterday, tender to palpation in generalized lower extremity below the knee, pt denies other new sx at this time, pt is bed bound, denies DM, states intermittent dyspnea which is chronic. Review of Systems - Adult - REVIEW OF SYSTEMS - ADULT Constitutional: reports: no symptoms reported Eyes: reports: no symptoms reported Ears, Nose, Mouth & Throat: reports: no symptoms reported Cardiovascular: reports: no symptoms reported Respiratory: reports: see HPI Gastrointestinal: reports: no symptoms reported Genitourinary: reports: no symptoms reported Musculoskeletal: reports: no symptoms reported Integumentary: reports: see HPI Neurological: reports: no symptoms reported Psychiatric: reports: no symptoms reported Endocrine: reports: no symptoms reported Hematologic/Lymphatic: reports: no symptoms reported Allergic/Immunologic: reports: no symptoms reported All Other Systems: Reviewed and Negative Past History - Adult - PAST MEDICAL HISTORY-ADULT Review of Records: reports: Old Records Reviewed, Nursing Assessment Review, Medications Reviewed Major Childhood Illnesses: reports: denies history Cardiovascular: reports: CAD, CHF, HTN, hyperlipidemia, other (x2 stents) Respiratory: reports: COPD, sleep apnea Gastrointestinal: reports: GERD Obstetrical/Gynecological: reports: denies history Genitourinary: reports: denies history Musculoskeletal: reports: chronic pain Neurological: reports: denies history Endocrine/Immune: reports: denies history Other Conditions: reports: denies history - PRIOR SURGERIES/PROCEDURES Surgical/Procedure History: reports: appendectomy, BTL, other (stents x 2) - IMMUNIZATION STATUS Childhood Immunizations: See Nurse Assessment Flu Vaccine: See Nurse Assessment - FAMILY HISTORY Family History: reviewed, not pertinent - SOCIAL HISTORY Smoking: denies Substance Use: none/never Alcohol Use Frequency: never Physical Exam-General - PHYSICAL EXAM-ADULT Initial Vital Signs Reviewed: Yes - CONSTITUTIONAL General Appearance: appears well, alert, no apparent distress, other (pt is baseline bed bound) - EYES Eyes: PERRL/EOMI, pink conjunctivae. negative: anisocoria, photophobia, sclera injected, scleral icterus - HEAD, EARS, NOSE, MOUTH & THROAT HENMT: normocephalic/atraumatic, moist mucous membranes, normal ENT inspection - NECK Neck: non-tender, full range of motion, supple - RESPIRATORY Respiratory: chest non-tender, lungs clear, normal breath sounds, no pleuratic chest pain, no respiratory distress, no accessory muscle use - CARDIOVASCULAR Cardiovascular: regular rate, rhythm, tachycardia. negative: no edema (+3 edema to lower extremities chronically) - GASTROINTESTINAL (ABDOMEN) Abdominal Exam: normal bowel sounds, non tender, soft, distended. negative: guarding, rigid, rebound, tenderness - LYMPHATIC Lymphatic: no adenopathy - MUSCULOSKELETAL Extremity: calf tenderness (rt lower extremity generalized tenderness), erythema (rt LE warm and erythematous), tenderness (rt LE tender) Peripheral Pulses: radial (R): 2+, radial (L): 2+, dorsalis-pedis (R): 1+, dorsalis-pedis (L): 1+ - SKIN Integumentary: normal color, normal turgor, other (see HPI for rt LE description, multiple scattered lesions and abrasions) - NEUROLOGIC Neurologic: grossly normal, no motor/sensory deficits. negative: facial droop, focal weakness, motor weakness, sensory deficit - PSYCHIATRIC Psych/Mental Status: normal mood/affect, normal thought content, normal thought process, oriented x 3 Progress - PLAN OF CARE/RESULTS Progress/Plan/Lab Results: Vital Signs - 8 hr 05/28/19 19:51 Temperature 98.9 F Pulse Rate 99 H Respiratory Rate 18 Blood Pressure 117/79 O2 Sat by Pulse Oximetry 94 L Orders Category Date Time Status BLOOD CULTURE [BLDCUL] Stat Lab 05/28/19 20:19 Uncollected CBC WITH ELECTRONIC DIFF [HEME] Stat Lab 05/28/19 20:18 Uncollected COMPREHENSIVE METABOLIC PANEL [CHEM] Stat Lab 05/28/19 20:19 Uncollected D-DIMER [COAG] Stat Lab 05/28/19 20:19 Ordered LACTATE, PLASMA [CHEM] Stat Lab 05/28/19 20:19 Uncollected 0.9% Sodium Chloride Inj [Ns] 500 ml Med 05/28/19 20:19 Active IV 999 mls/hr Result Diagrams: 05/28/19 20:35 05/28/19 20:35 - EKG 1 Time of EKG reading by physician:: 21:30 EKG Read and Signed by:: Yogesh Trevino EKG Interpretation (*Must complete 3 of following elements*): Normal Rate: 100 Rhythm: nsr Mar Lin: normal QRS: normal SD Interval: normal ST Wave: normal Prior EKG Comparison: unchanged from prior Comments: NAD - XRAY 1 XRAY Study: Chest Impression: Normal XRAY Interpretation: NAD - CONSULTS/PCP/HOSPITALIST Notification #1 *Consult/PCP/Hospitalist*: penot Time Discussed: 21:45 Reason/Comments: Admit to [facility] med surg Consult Disposition: Admit Departure - Departure Date of Disposition Decision: 05/28/19 Time of Disposition Decision: 21:57 DIAGNOSIS: Cellulitis of right lower extremity, Dyspnea, CKD (chronic kidney disease) Disposition: ADMITTED INPATIENT Certified Medical Emergency: Emergent Condition: Stable Additional Freetext Instructions: pt admitted to Dr Cisneros for [facility] med surg Referrals and Follow-Ups: None,PCP [Primary Care Provider] - - Critical Care Note This patient required my direct & personal management of CC.: No Attestation - Physician/ HENRI Attestation Patient care was provided by Advanced Practice Provider:: Yes Advanced Practice Provider:: Briseyda Ojeda Advanced Practice Provider documentation review:: The Mid-level provider documentation, treatment plan and medical decision making was reviewed by the physician who agrees with all treatment and medical decision making by the MLP. The physician spent face to face time with patient:: No Advanced Practice Provider documentation review:: Supervising physician onsite and consulted in the evaluation and care of this patient. The physician did not have a face to face encounter with the patient.
[2019-05-28] MEDS ORDERED: ZOSYN 3.375 GM in NS 50 ML IV ONE (20:43)
[2019-05-28] MEDS ORDERED: VANCOMYCIN 1 GM/NS 1 GM/250 ML IVPB IV ONE (20:44)
[2019-05-28 20:48] LABS: BASO# 0.01 X1000 (0.0-0.2); BASO% 0.1 % (0.0-0.8); EOS# 0.18 X1000 (0.0-0.7); EOS% 2.4 % (0.0-10.0); HEMATOCRIT 37.2 % (37.0-47.0); HEMOGLOBIN 11.6 g/dL (12.0-16.0); IMM GRAN# 0.02 X1000 (0.0-0.04); IMM GRAN% 0.3 % (0.0-0.5); LYMPH# 1.77 X1000 (1.2-3.4); LYMPH% 23.8 % (20.5-51.1); MCH 26.8 PG (27-31); MCHC 31.2 g/dL (33-37); MCV 85.9 FL (81-99); MONO# 1.06 X1000 (0.11-0.59); MONO% 14.2 % (1.7-9.3); MPV 9.9 FL (7.4-10.4); NEUT% 59.2 % (42.2-75.2); PLT 319 X1000 (130-400); RBC 4.33 XMIL (4.2-5.4); RDW 13.4 % (11.5-14.5); WBC 7.44 X1000 (4.8-10.8)
[2019-05-28 21:10] LABS: ALBUMIN 4.1 g/dL (3.5-5.0); CALCIUM 8.9 mg/dL (8.8-10.2); CREATININE 2.6 mg/dL (0.5-0.9); POTASSIUM 3.8 mmol/L (3.5-5.1); TOTAL BILIRUBIN 0.2 mg/dL (0.20-1.00); TOTAL PROTEIN 7.7 g/dL (6.3-8.3)
[2019-05-28] MEDS ORDERED: CLINDAMYCIN 600 MG/D5W 600 MG/50 ML IVPB IV ONE (21:18)
--- NOTE | 2019-05-28 21:26 | Diag Imaging Result Doc PS360 ---
EXAM: CHEST-1 VIEW INDICATION: edema/sob TECHNIQUE: One view COMPARISON: 03/31/2019 FINDINGS: There are linear opacities at both lung bases most compatible with subsegmental atelectasis. The lungs are grossly clear, otherwise. There is no discrete pleural fluid collection or pneumothorax. The cardiomediastinal silhouette and central vasculature are grossly unremarkable accounting for magnification from AP technique. IMPRESSION: Linear densities at the lung bases suggesting subsegmental atelectasis. No definite acute pathology, otherwise. Electronically signed by Kd Gonzalez 05/28/2019 9:23 PM
[2019-05-28] MEDS ORDERED: LOVENOX 1 MG/KG SUBQ ONE (21:39)
[2019-05-28] MEDS ORDERED: LOVENOX ONE (21:44)
[2019-05-28 22:37] LABS: BILIRUBIN URINE NEGATIVE (NEGATIVE); BLOOD URINE 2+ (NEGATIVE); CLARITY CLEAR (CLEAR); COLOR YELLOW; GLUCOSE URINE NEGATIVE (NEGATIVE); KETONE URINE NEGATIVE (NEGATIVE); LEUKOCYTES URINE 1+ (NEGATIVE); NITRITE URINE POSITIVE (NEGATIVE); PROTEIN URINE TRACE mg/dL (NEGATIVE); UROBILINOGEN URINE NORMAL
[2019-05-28 22:42] LABS: URINE BACTERIA 4+ /HFP
[2019-05-28 22:43] LABS: URINE EPITHELIAL CELLS <10 /HPF (<10); URINE RBC <10 /HPF (<10)
[2019-05-28 22:44] LABS: URINE CRYSTAL NONE SEEN /HPF; URINE SOURCE CATH; URINE YEAST NONE SEEN /HPF
[2019-05-29] MEDS ORDERED: TYLENOL PO PRN (00:10)
[2019-05-29] MEDS ORDERED: ZOFRAN IV PRN (00:10)
[2019-05-29] MEDS ORDERED: DUONEB (A & A) INH PRN (00:10)
[2019-05-29] MEDS: MORPHINE IV PRN ×4 (00:49→20:22)
--- NOTE | 2019-05-29 06:24 | EKG Report ---
Test Performed on : 05/28/2019 9:26:21 PM Test Reason : CP Blood Pressure : / mmHG Vent. Rate : 100 BPM Atrial Rate : 100 BPM P-R Int : 136 ms QRS Dur : 082 ms QT Int : 352 ms P-R-T Axes : 035 035 041 degrees QTc Int : 454 ms Normal sinus rhythm. Normal ECG When compared with ECG of 31-MAR-2019 17:11, No significant change was found Unconfirmed Result
[2019-05-29] MEDS ORDERED: PERCOCET-10 PO SCH (08:00)
--- NOTE | 2019-05-29 08:57 | HISTORY AND PHYSICAL ---
PRIMARY CARE PHYSICIAN: Dr. Abebe Coto in [place], [place]. CHIEF COMPLAINT: Right lower extremity swelling and pain that began Minesh and progressively worsened. HISTORY OF PRESENTING ILLNESS: This is a 63-year-old female who complained of erythema, swelling and pain to her right lower extremity that began Minesh and is tender to touch. She is bed-bound. Workup showed a normal white blood cell count of 7.44. D-dimer was 1.46. BUN of 24 with a creatinine of 2.6. Urinalysis showed positive nitrites, 1+ white blood cells, 4+ bacteria. Her kidney function was normal in 04/03/2019 at 0.7. So this is an acute kidney injury and I will be unable to obtain a CTA of the pulmonary arteries. I will schedule her for a V/Q scan in the a.m., and she has been admitted for further evaluation and treatment. PAST MEDICAL HISTORY: 1. Coronary artery disease. 2. CHF. 3. Hypertension. 4. Hyperlipidemia. 5. COPD. 6. Sleep apnea. 7. GERD. 8. Chronic pain. PAST SURGICAL HISTORY: 1. Appendectomy. 2. Bilateral tubal ligation. 3. Two heart stent placements. FAMILY HISTORY: Positive for mother and father, brothers and sisters with coronary artery disease. SOCIAL HISTORY: She lives with a friend. Denies any tobacco, alcohol or illicit drug use. ALLERGIES: She has no known drug allergies. HOME MEDICATIONS: 1. Lasix 40 mg p.o. daily will be held. 2. Amlodipine 10 mg p.o. daily. 3. Aspirin 81 mg p.o. daily. 4. Lipitor 40 mg p.o. daily. 5. BuSpar 7.5 mg p.o. daily. 6. Calcium plus vitamin D3 1 p.o. daily. 7. Coreg 12.5 mg p.o. b.i.d. 8. Advair 100/50 inhalation b.i.d. 9. Gabapentin 600 mg p.o. t.i.d. 10. Oxycodone 10 p.r.n. 11. Potassium 10 mEq p.o. daily. 12. Requip 2 mg p.o. at bedtime. 13. Zoloft 50 mg p.o. daily. LABORATORY DATA: Showed a white blood cell count of 7.44, hemoglobin 11.6, hematocrit 37.2, platelets 319,000. D-dimer of 1.46. Sodium 138, potassium 3.8, chloride 95, CO2 28, BUN of 24, creatinine 2.6, glucose 120. Troponin of 0.016. ProBNP of 120. Plasma lactate of 0.7. Urinalysis with positive nitrites, 1+ white blood cells, 4+ bacteria. Chest x-ray showed linear densities at the lung bases suggesting subsegmental atelectasis but no definite acute pathology. EKG showed normal sinus rhythm at 100. REVIEW OF SYSTEMS: She denied any fever, chills, blurred vision, dizziness, chest pain, coughing, shortness of breath. She denied any abdominal pain, constipation, diarrhea, burning or hurting with urination. She did have pain to her right lower extremity with noted erythema, edema, and warmth to touch. PHYSICAL EXAMINATION: GENERAL: This is a 63-year-old female, lying in the bed. VITAL SIGNS: Temperature 98.9 degrees, pulse 99, respirations 18, blood pressure 117/79, saturating 94% on room air. HEENT: Normocephalic, atraumatic. Normal ENT inspection. Oropharynx and nares are clear. EYES: Pupils are equal, round, and reactive to light and accommodation. Extraocular movements are intact. NECK: Normal inspection, normal range of motion. LUNGS: Clear to auscultation bilaterally with equal lung expansion and chest wall movement. HEART: With regular rate and rhythm. No murmurs, rubs, or gallops. 3+ edema noted to bilateral lower extremities that is chronic. ABDOMEN: Soft, nontender, nondistended. Bowel sounds are present x4 quadrants. MUSCULOSKELETAL: She has some calf tenderness to her right lower extremity with some erythema, edema, and warmth to touch. Moves all extremities but is bedbound. NEUROLOGICAL: The cranial nerves 2-12 appear grossly intact. ASSESSMENT: 1. Right lower extremity cellulitis. 2. Elevated D-dimer. 3. Acute kidney injury. 4. Urinary tract infection. PLAN: She was admitted to the medical unit and placed on healthy heart diet. We are going to do a venous ultrasound of her right leg today. We will check a lung V/Q scan in the a.m. Blood culture and urine culture are pending. She is on clindamycin 600 mg IV q.8h. We will give her some gentle hydration for acute kidney injury. We are going to have to go carefully because she has congestive heart failure, so we will do 50 mL an hour of normal saline. I am going to hold a blood thinner at this time until I rule out the DVT with her venous ultrasound of her right leg as she has got some kidney insufficiency as well at this time, and we will recheck a CBC and BMP in the a.m. Further orders after seen by attending. Dictated by MICHAELA Osei for Prosper Cisneros MD cc: MICHAELA Osei MD Carlos Lolito
[2019-05-29] MEDS: CLINDAMYCIN 600 MG/D5W 600 MG/50 ML IVPB IV SCH ×3 (09:03→21:26)
[2019-05-29] MEDS: NS 1,000 ML IV SCH (09:43)
[2019-05-29] MEDS: CALTRATE 600 + D PO SCH (09:44)
[2019-05-29] MEDS: COREG PO SCH ×2 (09:44→20:22)
[2019-05-29] MEDS: KLOR-CON PO SCH (09:44)
[2019-05-29] MEDS: NORVASC PO SCH (09:44)
[2019-05-29] MEDS: ZOLOFT PO SCH (09:44)
[2019-05-29] MEDS: ASPIRIN PO SCH (09:44)
[2019-05-29] MEDS: NEURONTIN PO SCH ×3 (09:44→20:22)
[2019-05-29] MEDS: BUSPAR PO SCH (10:16)
[2019-05-29] MEDS: ROCEPHIN 1 GM in NS 50 ML IV SCH (12:13)
--- NOTE | 2019-05-29 15:00 | PROGRESS NOTE ---
DATE: 05/29/2019 SUBJECTIVE: The patient has no major complaints. She came in because of pain and swelling in her right lower extremity. She is morbidly obese. She has had a change in odor to her urine as well. On exam, she definitely has erythema, swelling is difficult to tell, but she has got erythema, tenderness to her right lower extremity on her calf, and even up into her upper extremity. She also has some mild acute kidney injury. We will treat her cellulitis. Clindamycin has been started, which is appropriate, as well as I am going to add Rocephin just to cover her UTI. The clindamycin is probably not going to cover her kidney infection. She has had ESBL, I believe, UTIs in the past, so we will have to keep that in mind, and follow up on her cultures. Will rule out DVT because of her elevated D-dimer, continue gentle hydration, and follow. cc: Prosper Cisneros MD
--- NOTE | 2019-05-29 15:47 | Vascular Study Report ---
EXAM: Venous U/S Right Leg INDICATION: r/o dvt TECHNIQUE: COMPARISON: 02/07/2019 FINDINGS: Note that this study is limited as the capacitor pack press operator did not visualize the distal right superficial femoral vein are the right peroneal vein. There is no discrete filling defect and there is normal Doppler flow, compressibility, and augmentation involving the remaining deep venous system on the right. The right greater saphenous vein also appears to be patent. IMPRESSION: Limited study as described. However, no DVT is appreciated as imaged. Electronically signed by Kd Gonzalez 05/29/2019 3:45 PM
[2019-05-29] MEDS: ADVAIR 100/50 DISKUS INH SCH (19:24)
[2019-05-29] MEDS: REQUIP PO SCH (20:22)
[2019-05-29] MEDS: LIPITOR PO SCH (20:22)
[2019-05-30] MEDS: MORPHINE IV PRN ×6 (02:10→21:51)
[2019-05-30] MEDS: NS 1,000 ML IV SCH (04:16)
[2019-05-30] MEDS: CLINDAMYCIN 600 MG/D5W 600 MG/50 ML IVPB IV SCH ×3 (05:04→21:55)
[2019-05-30 07:09] LABS: BASO# 0.01 X1000 (0.0-0.2); BASO% 0.2 % (0.0-0.8); EOS# 0.19 X1000 (0.0-0.7); HEMATOCRIT 37.5 % (37.0-47.0); HEMOGLOBIN 11.2 g/dL (12.0-16.0); IMM GRAN# 0.04 X1000 (0.0-0.04); IMM GRAN% 0.8 % (0.0-0.5); LYMPH# 1.59 X1000 (1.2-3.4); LYMPH% 33.5 % (20.5-51.1); MCH 26.9 PG (27-31); MCHC 29.9 g/dL (33-37); MCV 90.1 FL (81-99); MONO# 0.59 X1000 (0.11-0.59); MONO% 12.4 % (1.7-9.3); MPV 10.9 FL (7.4-10.4); NEUT# 2.32 X1000 (1.4-6.5); NEUT% 49.1 % (42.2-75.2); PLT 87 X1000 (130-400); RBC 4.16 XMIL (4.2-5.4); RDW 13.6 % (11.5-14.5); WBC 4.74 X1000 (4.8-10.8)
[2019-05-30 08:25] LABS: CREATININE 1.2 mg/dL (0.5-0.9); POTASSIUM 4.7 mmol/L (3.5-5.1)
[2019-05-30] MEDS: BUSPAR PO SCH (09:50)
[2019-05-30] MEDS: NEURONTIN PO SCH ×3 (09:51→21:55)
[2019-05-30] MEDS: NORVASC PO SCH (09:51)
[2019-05-30] MEDS: CALTRATE 600 + D PO SCH (09:51)
[2019-05-30] MEDS: ASPIRIN PO SCH (09:51)
[2019-05-30] MEDS: ZOLOFT PO SCH (09:51)
[2019-05-30] MEDS: KLOR-CON PO SCH (09:51)
[2019-05-30] MEDS: COREG PO SCH ×2 (09:52→21:55)
[2019-05-30] MEDS: ADVAIR 100/50 DISKUS INH SCH ×2 (09:57→19:15)
--- NOTE | 2019-05-30 10:44 | Diag Imaging Result Doc PS360 ---
EXAM: CHEST-PORTABLE - 05/30/2019 HISTORY: vq scan TECHNIQUE: Portable chest COMPARISON: 05/28/2019 FINDINGS: There is stable mild cardiomegaly. There are scattered subsegmental atelectasis on the left. The remainder of the lungs appear essentially clear. There is no pleural effusion or pneumothorax identified. IMPRESSION: Stable mild cardiomegaly. Scattered subsegmental atelectasis on the left. Electronically signed by Dillon Ellis 05/30/2019 10:42 AM
--- NOTE | 2019-05-30 11:22 | Diag Imaging Result Doc PS360 ---
EXAM: LUNG SCAN / VQ - 05/30/2019 HISTORY: Elevated d-dimer TECHNIQUE: Lung ventilation and perfusion scan. Ventilation images performed using 40.1 mCi technetium 99m DTPA aerosol inhaled. Perfusion images performed using 5.3 mCi technetium 99m MAA administered intravenously. Ventilation perfusion images are obtained in multiple directions over the lungs. COMPARISON: None. FINDINGS: There is mild retention of tracer in central bronchi. There are matching areas of decreased ventilation and perfusion. There is no ventilation/perfusion mismatch (area which is ventilated but not perfused) identified. IMPRESSION: Low probability for pulmonary embolism. Electronically signed by Dillon Ellis 05/30/2019 11:19 AM
[2019-05-30] MEDS: ROCEPHIN 1 GM in NS 50 ML IV SCH (11:58)
--- NOTE | 2019-05-30 14:34 | PROGRESS NOTE ---
DATE: 05/30/2019 SUBJECTIVE: The patient has no major complaints. OBJECTIVE: Vital Signs: Blood pressure is 128/59, heart rate 89, respiratory rate 20, temperature 98.2 degrees. Cardiovascular: Regular rate and rhythm. Pulmonary: Bilateral breath sounds. Clear to auscultation. GI: Soft, nontender, nondistended. Bowel sounds are positive. Extremities: No clubbing or cyanosis. Lymphatics: No peripheral edema. Neurological: Nonfocal. LABORATORY DATA: White count 4.7, hemoglobin and hematocrit 11 and 37, platelets dropped to 87 from 319. Creatinine is 1.2. PROBLEM LIST: 1. Cellulitis of the right lower extremity. Looks a little bit better to me. She is on clindamycin, and seems to be doing better. 2. Urinary tract infection. She has a history of extended spectrum beta-lactamase urinary tract infection. Right now, she is just on Rocephin. She is symptomatic in that the urine had odor, but other than that, she seems to be doing okay. 3. Acute kidney injury is also improving with fluids. Will continue to monitor. 4. Hypertension is stable. 5. Pancytopenia. Will repeat her counts just to make sure this is not spurious information because her counts were normal and then they plummeted, so we will monitor that closely, but we will need to follow up on her urine culture results before discharge because she did have an extended spectrum beta-lactamase previously. cc: Prosper Cisneros MD
[2019-05-30 15:35] LABS: HEMATOCRIT 34.9 % (37.0-47.0); HEMOGLOBIN 10.4 g/dL (12.0-16.0); MCH 26.4 PG (27-31); MCHC 29.8 g/dL (33-37); MCV 88.6 FL (81-99); RBC 3.94 XMIL (4.2-5.4); RDW 13.4 % (11.5-14.5); WBC 6.49 X1000 (4.8-10.8)
[2019-05-30] MEDS: REQUIP PO SCH (21:55)
[2019-05-30] MEDS: LIPITOR PO SCH (21:58)
[2019-05-31] MEDS: NS 1,000 ML IV SCH ×2 (00:09→20:54)
[2019-05-31] MEDS: MORPHINE IV PRN (04:44)
[2019-05-31] MEDS: CLINDAMYCIN 600 MG/D5W 600 MG/50 ML IVPB IV SCH ×4 (05:41→22:07)
[2019-05-31 07:01] LABS: BASO# 0.01 X1000 (0.0-0.2); BASO% 0.2 % (0.0-0.8); EOS# 0.22 X1000 (0.0-0.7); EOS% 3.8 % (0.0-10.0); HEMATOCRIT 36.3 % (37.0-47.0); HEMOGLOBIN 10.6 g/dL (12.0-16.0); IMM GRAN# 0.03 X1000 (0.0-0.04); IMM GRAN% 0.5 % (0.0-0.5); LYMPH# 1.46 X1000 (1.2-3.4); LYMPH% 25.3 % (20.5-51.1); MCH 26.1 PG (27-31); MCHC 29.2 g/dL (33-37); MCV 89.4 FL (81-99); MONO# 0.71 X1000 (0.11-0.59); MONO% 12.3 % (1.7-9.3); MPV 10.5 FL (7.4-10.4); NEUT# 3.34 X1000 (1.4-6.5); NEUT% 57.9 % (42.2-75.2); PLT 279 X1000 (130-400); RBC 4.06 XMIL (4.2-5.4); RDW 13.4 % (11.5-14.5); WBC 5.77 X1000 (4.8-10.8)
[2019-05-31 07:25] LABS: AGAP 9; ALBUMIN 3.7 g/dL (3.5-5.0); BUN 14 mg/dL (8-22); CALCIUM 9.4 mg/dL (8.8-10.2); CHLORIDE 101 mmol/L (98-107); COSMO 279; CREATININE 0.9 mg/dL (0.5-0.9); ESTIMATED GFR > 60; GLUCOSE 118 mg/dL (70-104); PHOSPHORUS 3.1 mg/dL (2.7-4.5); POTASSIUM 4.7 mmol/L (3.5-5.1); SODIUM 139 mmol/L (136-145); TCO2 29 mmol/L (25-35)
[2019-05-31] MEDS: ADVAIR 100/50 DISKUS INH SCH ×2 (07:59→19:20)
[2019-05-31] MEDS: ZOLOFT PO SCH (08:02)
[2019-05-31] MEDS: NORCO-7.5 PO PRN ×4 (08:02→20:53)
[2019-05-31] MEDS: KLOR-CON PO SCH (08:02)
[2019-05-31] MEDS: NEURONTIN PO SCH ×3 (08:03→20:54)
[2019-05-31] MEDS: ASPIRIN PO SCH (08:03)
[2019-05-31] MEDS: NORVASC PO SCH (08:03)
[2019-05-31] MEDS: COREG PO SCH ×2 (08:03→20:54)
[2019-05-31] MEDS: BUSPAR PO SCH (08:03)
[2019-05-31] MEDS: CALTRATE 600 + D PO SCH (08:04)
[2019-05-31] MEDS: ROCEPHIN 1 GM in NS 50 ML IV SCH (11:47)
--- NOTE | 2019-05-31 13:39 | Diag Imaging Result Doc PS360 ---
EXAM: CT RENAL STONE SEARCH HISTORY: recurrent ESBL+ Ecoli UTI, h/o renal stones TECHNIQUE: CT abdomen and pelvis without contrast COMPARISON: 05/23/2017 FINDINGS: The heart is mildly prominent. The calcified lower chest nodes and scattered granuloma. Atelectasis or scarring in the lower lungs. The gallbladder is contracted. No focal hepatic, splenic, or pancreatic normality identified on this noncontrasted exam. Normal adrenal glands. No renal stones. No hydronephrosis. No aortic aneurysm. Stool throughout the colon. No inflammation about the cecum. No bowel obstruction. There is a Ivan catheter in the urinary bladder. The uterus is small. No pelvic mass. Degenerative spine changes with multilevel spinal stenosis. IMPRESSION: 1.No renal stones or hydronephrosis. 2.Constipation This exam was performed using automated exposure control, adjustment of mA or kV according to patient size, and/or use of iterative reconstruction technique. Electronically signed by Memo Falcon 05/31/2019 1:36 PM
[2019-05-31] MEDS: PRIMAXIN 1,000 MG in NS 250 ML IV SCH (18:50)
--- NOTE | 2019-05-31 19:41 | PROGRESS NOTE ---
DATE: 05/31/2019 SUBJECTIVE: Patient notes that she is feeling better still generally weak but denies any fevers or chills. Denies headaches, blurred vision. PHYSICAL: Temperature 98, pulse 77, respiratory 18, BP 99/76.General: Patient is awake currently in no distress, pleasant to talk with. HEENT: Normocephalic. Neck: Supple. CV: Regular rate. Chest: Clear. Abdomen: Soft, nondistended. Extremities: Moves all extremities. ASSESSMENT: 1. Acute on chronic renal failure. Creatinine has decreased from 2.6 down to 1.2. 2. Bilateral lower extremity edema. 3. Right lower extremity cellulitis currently on clindamycin. 4. Urinary tract infection with gram-negative rods. Will continue Rocephin until culture and sensitivity. 5. Hypertension. 6. Pancytopenia, stable. PLAN: We will continue antibiotics, continue physical therapy. Further orders as needed. ADDENDUM: Her urine culture finally did grow extended spectrum beta-lactamase positive Escherichia coli. Will therefore stop her Rocephin, switch her to imipenem. Can consider Macrobid on discharge. cc: Trace Dumont MD
[2019-05-31] MEDS: LIPITOR PO SCH (20:53)
[2019-05-31] MEDS: REQUIP PO SCH (20:53)
[2019-05-31] MEDS: MIRALAX PO SCH (22:07)
[2019-06-01] MEDS: CLINDAMYCIN 600 MG/D5W 600 MG/50 ML IVPB IV SCH ×3 (05:29→22:32)
[2019-06-01 06:27] LABS: AGAP 8; ALBUMIN 3.4 g/dL (3.5-5.0); BUN 8 mg/dL (8-22); CHLORIDE 102 mmol/L (98-107); COSMO 276; CREATININE 0.6 mg/dL (0.5-0.9); ESTIMATED GFR > 60; GLUCOSE 107 mg/dL (70-104); PHOSPHORUS 2.9 mg/dL (2.7-4.5); POTASSIUM 4.9 mmol/L (3.5-5.1); SODIUM 139 mmol/L (136-145); TCO2 29 mmol/L (25-35)
[2019-06-01] MEDS: ADVAIR 100/50 DISKUS INH SCH ×2 (08:00→19:54)
[2019-06-01] MEDS: PRIMAXIN 1,000 MG in NS 250 ML IV SCH ×2 (08:13→20:05)
[2019-06-01] MEDS: ASPIRIN PO SCH (08:14)
[2019-06-01] MEDS: NEURONTIN PO SCH ×3 (08:14→20:04)
[2019-06-01] MEDS: NORCO-7.5 PO PRN ×2 (08:14→20:04)
[2019-06-01] MEDS: NORVASC PO SCH (08:14)
[2019-06-01] MEDS: ZOLOFT PO SCH (08:14)
[2019-06-01] MEDS: KLOR-CON PO SCH (08:14)
[2019-06-01] MEDS: MIRALAX PO SCH ×2 (08:15→08:20)
[2019-06-01] MEDS: CALTRATE 600 + D PO SCH (08:15)
[2019-06-01] MEDS: COREG PO SCH ×2 (08:15→20:05)
[2019-06-01] MEDS: BUSPAR PO SCH (08:15)
[2019-06-01] MEDS: ROCEPHIN 1 GM in NS 50 ML IV SCH (11:34)
[2019-06-01] MEDS: LIPITOR PO SCH (20:04)
[2019-06-01] MEDS: REQUIP PO SCH (20:05)
--- NOTE | 2019-06-01 21:54 | PROGRESS NOTE ---
DATE: 06/01/2019 SUBJECTIVE: Patient has no new complaints. States she really has not been out of bed. She is still tired and fatigued. Notes she has less swelling in her bilateral lower extremities. Still has a wound on her left foot. PHYSICAL EXAMINATION: Vital Signs: Temperature 98.4 degrees, pulse 79, respiratory rate 18, BP 131/66. General: Patient is awake. Currently, she is in no respiratory distress. HEENT: Normocephalic. Neck: Supple. Cardiovascular: Regular rate. Chest: Clear. Abdomen: Soft. Extremities: Moves all extremities. Neurologic: No focal changes. Skin: Warm, dry. Her rash on the left lower extremity is improving. ASSESSMENT: 1. Cellulitis, left lower extremity. 2. Extended-spectrum beta lactamase positive Escherichia coli, currently on ertapenem. It is also sensitive to Macrobid. 3. Obesity. 4. Adult failure to thrive. 5. Pancytopenia. PLAN: We will continue patient in the hospital. Her renal failure has improved. Continue ertapenem today for her extended-spectrum beta lactamase positive Escherichia coli. Hopefully, if she improves, she can be discharged home over the next 1 or 2 days. cc: Trace Dumont MD
[2019-06-02] MEDS: MIRALAX PO SCH ×3 (02:31→09:05)
[2019-06-02] MEDS: NORCO-7.5 PO PRN ×3 (02:32→17:57)
[2019-06-02] MEDS: NS 1,000 ML IV SCH (05:09)
[2019-06-02] MEDS: CLINDAMYCIN 600 MG/D5W 600 MG/50 ML IVPB IV SCH (05:10)
[2019-06-02] MEDS: ADVAIR 100/50 DISKUS INH SCH ×2 (07:51→19:33)
[2019-06-02] MEDS: ZOLOFT PO SCH (08:18)
[2019-06-02] MEDS: PRIMAXIN 1,000 MG in NS 250 ML IV SCH (08:18)
[2019-06-02] MEDS: NEURONTIN PO SCH ×3 (08:18→20:41)
[2019-06-02] MEDS: NORVASC PO SCH (08:18)
[2019-06-02] MEDS: KLOR-CON PO SCH (08:18)
[2019-06-02] MEDS: ASPIRIN PO SCH (08:19)
[2019-06-02] MEDS: BUSPAR PO SCH (08:19)
[2019-06-02] MEDS: COREG PO SCH ×2 (08:19→20:41)
[2019-06-02] MEDS: CALTRATE 600 + D PO SCH (08:20)
[2019-06-02] MEDS: CLEOCIN PO SCH ×3 (09:05→20:41)
[2019-06-02 12:00] LABS: AGAP 9; ALBUMIN 3.1 g/dL (3.5-5.0); BUN 9 mg/dL (8-22); CALCIUM 8.7 mg/dL (8.8-10.2); CHLORIDE 101 mmol/L (98-107); COSMO 274; CREATININE 0.7 mg/dL (0.5-0.9); ESTIMATED GFR > 60; GLUCOSE 90 mg/dL (70-104); PHOSPHORUS 2.8 mg/dL (2.7-4.5); POTASSIUM 4.7 mmol/L (3.5-5.1); SODIUM 138 mmol/L (136-145); TCO2 29 mmol/L (25-35)
[2019-06-02] MEDS: MERREM 1 GM in NS 50 ML IV SCH (15:14)
[2019-06-02] MEDS: REQUIP PO SCH (20:41)
[2019-06-02] MEDS: LIPITOR PO SCH (20:41)
--- NOTE | 2019-06-03 00:07 | PROGRESS NOTE ---
DATE: 06/02/2019 SUBJECTIVE: Patient notes she is feeling okay. Swelling and redness in her lower extremities have improved. However, states she still has not been out of bed. She is having difficulty getting out of bed due to generalized weakness. PHYSICAL EXAMINATION: Vital Signs: Temperature 97.9 degrees, pulse 83, respiratory rate 18, BP 131/52. General: Patient is awake, alert. She is in no respiratory distress. Obese female who is sitting in the bed. HEENT: Normocephalic. Neck: Supple. Cardiovascular: Regular rate. Chest: Clear. Abdomen: Soft. Extremities: Moves all extremities. Skin: She has less erythema of her bilateral lower extremities. ASSESSMENT: 1. Cellulitis right lower extremity. 2. Morbid obesity. 3. Urinary tract infection. 4. Acute kidney injury, improved. 5. Hypertension, stable. PLAN: The patient has E coli ESBL positive urinary tract infection. She has been on imipenem for the past 3 days. We will get Physical Therapy involved. She certainly may require rehab on discharge. cc: Trace Dumont MD
[2019-06-03] MEDS: MIRALAX PO SCH ×3 (02:38→20:47)
[2019-06-03] MEDS: MERREM 1 GM in NS 50 ML IV SCH ×4 (02:40→18:37)
[2019-06-03] MEDS: NS 1,000 ML IV SCH ×2 (05:20→20:47)
[2019-06-03] MEDS: ADVAIR 100/50 DISKUS INH SCH ×2 (07:40→19:56)
[2019-06-03] MEDS: COREG PO SCH ×2 (09:21→20:46)
[2019-06-03] MEDS: CLEOCIN PO SCH ×3 (09:21→20:46)
[2019-06-03] MEDS: KLOR-CON PO SCH (09:21)
[2019-06-03] MEDS: NORVASC PO SCH (09:22)
[2019-06-03] MEDS: CALTRATE 600 + D PO SCH (09:22)
[2019-06-03] MEDS: ASPIRIN PO SCH (09:22)
[2019-06-03] MEDS: NEURONTIN PO SCH ×3 (09:22→20:46)
[2019-06-03] MEDS: ZOLOFT PO SCH (09:22)
[2019-06-03] MEDS: BUSPAR PO SCH (09:23)
[2019-06-03] MEDS: NORCO-7.5 PO PRN ×2 (13:22→20:46)
--- NOTE | 2019-06-03 15:02 | PROGRESS NOTE ---
DATE: 06/03/2019 SUBJECTIVE: Patient states that she feels better. No breathing issues. However, states she is still very tired and fatigued. Notes she was able to sit on the side of the bed with physical therapy. PHYSICAL EXAMINATION: Vital Signs: Temperature 98 degrees, pulse 85, respiratory rate 10, BP 126/62. General: Patient is awake, currently in no distress. HEENT: Normocephalic. Neck: Supple. Cardiovascular: Regular rate. Chest: Clear. Abdomen: Soft, obese. Extremities: Moves all extremities. Positive edema bilateral lower extremities. Skin: Warm and dry. Erythema has improved. ASSESSMENT: 1. Adult failure to thrive. The patient unfortunately is not physically capable of caring for herself at home currently. Discussed with patient rehab. She has declined that option. Discussed that it is highly unlikely she will stay in the hospital long enough to get physically steady on her feet. However, expect that she will be in the hospital through the weekend as we cannot get rehab over the weekend. 2. Cellulitis, right lower extremity, improved. We will change to p.o. antibiotics. 3. Escherichia coli extended spectrum beta-lactamase positive urinary tract infection. She currently is on Merrem. We will continue that for a few more days while she is in the hospital. 4. Acute kidney injury, resolved. Creatinine is down to 0.7. 5. Hypertension, stable. PLAN: Will continue patient in the hospital. Continue physical therapy, antibiotics and will follow. cc: Trace Dumont MD
[2019-06-03] MEDS: LIPITOR PO SCH (20:46)
[2019-06-03] MEDS: REQUIP PO SCH (20:46)
[2019-06-04] MEDS: MERREM 1 GM in NS 50 ML IV SCH ×3 (01:43→18:12)
[2019-06-04] MEDS: CLEOCIN PO SCH ×3 (08:17→20:59)
[2019-06-04] MEDS: ASPIRIN PO SCH (08:17)
[2019-06-04] MEDS: NORVASC PO SCH (08:17)
[2019-06-04] MEDS: COREG PO SCH ×2 (08:18→20:59)
[2019-06-04] MEDS: NORCO-7.5 PO PRN ×2 (08:18→17:31)
[2019-06-04] MEDS: ZOLOFT PO SCH (08:18)
[2019-06-04] MEDS: NEURONTIN PO SCH ×3 (08:18→20:59)
[2019-06-04] MEDS: CALTRATE 600 + D PO SCH (08:19)
[2019-06-04] MEDS: KLOR-CON PO SCH (08:19)
[2019-06-04] MEDS: BUSPAR PO SCH (08:19)
[2019-06-04] MEDS: ADVAIR 100/50 DISKUS INH SCH ×2 (08:38→19:46)
[2019-06-04] MEDS: MIRALAX PO SCH ×2 (11:29→21:00)
--- NOTE | 2019-06-04 12:34 | PROGRESS NOTE ---
DATE: 06/04/2019 SUBJECTIVE: Patient notes that she does not ambulate much at home. States she simply transfers from chair to power scooter. PHYSICAL EXAMINATION: Vital Signs: Temperature 98 degrees, pulse 92, respiratory rate 18, BP 136/61. General: Patient is awake. She is in no respiratory distress. HEENT: Normocephalic. Neck: Supple. Cardiovascular: Regular rate. Chest: Clear, nonlabored. Abdomen: Soft, obese. Extremities: Moves upper extremities well. Skin: Lower extremity erythema has resolved. ASSESSMENT: 1. Cellulitis, right lower extremity. 2. Escherichia coli extended spectrum beta lactamase positive urinary tract infection. We will continue Merrem today and then stop. 3. Acute kidney injury, resolved. PLAN: Patient overall is stable. She is better. Hopefully we can discontinue her Ivan catheter today and possibly discharge her home tomorrow. cc: Trace Dumont MD
[2019-06-04] MEDS: NS 1,000 ML IV SCH (16:42)
[2019-06-04] MEDS: LIPITOR PO SCH (20:59)
[2019-06-04] MEDS: REQUIP PO SCH (20:59)
[2019-06-05] MEDS: MERREM 1 GM in NS 50 ML IV SCH ×2 (02:28→10:38)
[2019-06-05] MEDS: NORCO-7.5 PO PRN ×2 (05:08→10:37)
[2019-06-05 08:01] VITALS: BP 160/81
[2019-06-05] MEDS: ADVAIR 100/50 DISKUS INH SCH (08:09)
[2019-06-05] MEDS: ASPIRIN PO SCH (08:11)
[2019-06-05] MEDS: ZOLOFT PO SCH (08:11)
[2019-06-05] MEDS: COREG PO SCH (08:11)
[2019-06-05] MEDS: NEURONTIN PO SCH (08:11)
[2019-06-05] MEDS: NORVASC PO SCH (08:11)
[2019-06-05] MEDS: CLEOCIN PO SCH ×2 (08:12→12:52)
[2019-06-05] MEDS: MIRALAX PO SCH (08:12)
[2019-06-05] MEDS: KLOR-CON PO SCH (08:12)
[2019-06-05] MEDS: BUSPAR PO SCH (08:13)
[2019-06-05] MEDS: CALTRATE 600 + D PO SCH (08:14)
[2019-06-05] MEDS: NS 1,000 ML IV SCH (10:39)
--- NOTE | 2019-06-05 15:10 | DISCHARGE SUMMARY ---
ADMISSION DATE: 05/28/2019 DISCHARGE DATE: 06/05/2019 DISCHARGE DIAGNOSES: 1. Cellulitis, right lower extremity, improved. 2. Escherichia coli extended spectrum beta-lactamase positive urinary tract infection. 3. Acute kidney injury with creatinine 2.6 on admit, 0.7 on discharge. 4. Hypotension, resolved. 5. Hypertension, stable. 6. Sepsis, resolved. Secondary to urinary source. 7. Pancytopenia, resolved. CONSULTATIONS: None. PROCEDURES: None. BRIEF HOSPITAL COURSE: The patient is a 63-year-old morbidly obese female who admitted to the hospital with cellulitis. Subsequently, she was diagnosed with a ESBL positive E coli urinary tract infection. Thankfully, she had an uneventful hospital course. On discharge, she is awake, alert. She is very limited mobility. She notes this is chronic for her. DISPOSITION: Patient will be discharged home. Certainly would prefer her to go to rehab but patient declined. She states that she has very limited mobility at home and exists from bed to chair and chair to motorized scooter. We will continue her home medications. We will place her on Macrobid for a few more days at home and will follow. cc: Trace Dumont MD
--- NOTE | 2019-06-05 15:24 | DISCHARGE SUMMARY ---
ADMISSION DATE: 05/28/2019 DISCHARGE DATE: 06/05/2019 DIAGNOSES: 1. Right lower extremity cellulitis. 2. Escherichia coli extended-spectrum B-lactamase positive urinary tract infection. 3. Acute kidney injury, resolved. 4. Obesity. 5. Pancytopenia. 6. Adult failure to thrive. DIAGNOSTICS: 1. Chest x-ray revealed linear densities at the lung bases suggesting subsegmental atelectasis. 2. Bilateral lower extremity Doppler revealed no DVT. 3. Lung scan V/Q. Low probability for pulmonary embolism. 4. Renal CT. No renal stones or hydronephrosis. Constipation. MICROBIOLOGY: 1. Blood cultures x2 with no growth after 5 days. 2. Urine culture revealed ESBL positive E coli UTI. HOSPITAL COURSE: Ms. De Santiago presented to the emergency room complaining of right lower extremity swelling and pain. She was found to have right lower extremity cellulitis. Blood cultures returned negative. She was started on clindamycin initially and Rocephin. Rocephin was stopped once ESBL positive E coli UTI cultures returned. She was switched to imipenem and substituted for Merrem. She received 6 days of IV antibiotic coverage. Ivan catheter has been discontinued. The patient states she is voiding without difficulty. Cellulitis of right lower extremity is improved greatly. Of note, the patient is not ambulatory at home. She transfers from chair or bed to power scooter. She was followed by Physical Therapy throughout the hospitalization. Rehab was offered to the patient, and she adamantly refused. She did agree to go home and resume home health care with [facility]. DISCHARGE VITAL SIGNS: Blood pressure is 160/80 with heart rate of 90, respirations 20, temperature 98.5 degrees oral with room air saturations 94%. DISCHARGE PHYSICAL EXAM: Cardiovascular: Regular rate and rhythm. S1 and S2 appreciated. Pulmonary: Breath sounds clear with no increased work of breathing noted. Gastrointestinal: Abdomen is soft, nontender, nondistended with bowel sounds in all 4 quadrants. Skin: Warm and dry with erythema resolved to right lower extremity. DISCHARGE MEDICATIONS: 1. Oxycodone 10/325 one as directed. 2. Macrobid 100 mg p.o. b.i.d. for 4 days. 3. Lasix 40 mg p.o. daily. 4. Advair 100/50 one puff b.i.d. 5. Zoloft 50 mg p.o. daily. 6. Clindamycin 300 mg p.o. t.i.d. 7. Requip 2 mg p.o. at bedtime. 8. Potassium 10 mEq p.o. daily. 9. Gabapentin 600 mg p.o. t.i.d. 10. Coreg 12.5 mg p.o. b.i.d. 11. Caltrate 600 + D 1 p.o. daily. 12. BuSpar 7.5 p.o. daily. 13. Atorvastatin 40 mg p.o. daily. 14. Norvasc 10 mg p.o. daily. FOLLOW-UP: 1. Her primary care provider. She needs to call Thursday to schedule an appointment in the next 2 weeks to re-evaluate her lower extremity edema. 2. The patient will resume care under [facility]. She is being discharged home in stable condition with family members. TIME SPENT: This is a greater than 30 minute discharge. Dictated by MICHAELA Michaels for Trace Dumont MD cc: MICHAELA Michaels MD
== END 2019-06-05 14:57 | disposition home health service (06) | DRG 603 ==
LOC: P.ED 19:44 → P.MEDSURG 19:44 → OBSVTOIN 23:59 → SUATTDRO 23:59
PROVIDERS: ATTEND Family Medicine